=== PATIENT | male | born 1960 | race Caucasian/White ===

== ENCOUNTER 2019-08-05 05:44 | Day surgery (SDC) | payer BC ==
[~2019-08-05 05:44] MED LIST: AMIODARONE200 MG PO; CARVEDILOL12.5 MG PO; ESTER C PO; LISINOPRIL5 MG PO; PROTONIX40 M2 PO; SPIRONOLACT25 MG PO; XARELTO10 MG PO
[2019-08-05] MEDS ORDERED: PERCOCET 5/325M1 TAB PO (08:36)
[2019-08-05 09:53] VITALS: BP 124/86
[2019-11-10] MEDS ORDERED: BACTRIM DS1 TAB PO (09:38)
== END 2019-08-05 10:15 | disposition home or self-care (01) | DRG 419 ==
LOC: ORM 05:44
PROVIDERS: ATTEND Surgery
PROC: 0FT44ZZ Resection of Gallbladder, Percutaneous Endoscopic Approach (ICD-10-PCS; principal; 2019-08-05)
DX: K80.12 Calculus of gallbladder with acute and chronic cholecystitis without obstruction (principal); I10 Essential (primary) hypertension; I48.91 Unspecified atrial fibrillation; Z11.59 Encounter for screening for other viral diseases
CPT/HCPCS: J0131; J2710

== ENCOUNTER 2019-09-15 09:52 | Day surgery (SDC) | payer BC ==
[~2019-09-15 09:52] MED LIST changes: +PERCOCET 5/325M1 TAB PO
[2019-09-15 12:43] VITALS: BP 111/59
[2019-11-10] MEDS ORDERED: BACTRIM DS1 TAB PO (09:38)
== END 2019-09-15 13:40 | disposition home or self-care (01) | DRG 951 ==
LOC: ENDO 09:52 → ORM 12:35 → ENDO 13:40
PROVIDERS: ATTEND Surgery
PROC: 0DJ08ZZ Inspection of Upper Intestinal Tract, Via Natural or Artificial Opening Endoscopic (ICD-10-PCS; principal; 2019-09-15)
DX: Z46.89 Encounter for fitting and adjustment of other specified devices (principal); K44.9 Diaphragmatic hernia without obstruction or gangrene; I25.10 Atherosclerotic heart disease of native coronary artery without angina pectoris; I48.91 Unspecified atrial fibrillation; Z11.59 Encounter for screening for other viral diseases

== ENCOUNTER 2020-06-25 | Emergency (ER) | payer BC ==
[~2020-06-25] MED LIST changes: +BACTRIM DS1 TAB PO
[2020-06-25] MEDS ORDERED: DIGOXIN250 MCG PO (05:50)
[2020-06-25 06:06] LABS: HEMATOCRIT 38.4 % (39.0-50.0); HEMOGLOBIN 12.8 g/dl (14.0-18.0); IMMATURE GRANULOCYTES 0.2 % (0.0-5.0); MEAN CELL VOLUME 95.3 fL CALC (80.0-100.0); MEAN CORPUSCULAR HGB 31.8 pG CALC (26.0-32.0); MEAN CORPUSCULAR HGB CONC 33.3 g/dL CAL (32.0-36.0); NEUT# 6.41 thou/uL (1.82-7.42); RED BLOOD COUNT 4.03 mill/uL (4.70-6.10)
[2020-06-25 06:27] LABS: ALKALINE PHOSPHATASE 77 u/l (38-126); ANION GAP 11 (6-22 (CALC)); BILIRUBIN, TOTAL 1.8 mg/dL (0.0-1.4); BUN 23 mg/dL (9-20); BUN/CREATININE RATIO 19 (12-20 (CALC)); CARBON DIOXIDE 22 mmol/l (22-30); CHLORIDE 108 mmol/l (95-108); CREATININE 1.2 mg/dL (0.7-1.3); ETHYL ALCOHOL 0 mg/dl (0-30); GFR > 60 ML/MIN (>=60 (CALC)); GFR FOR AFR.AMER. > 60 ML/MIN (>=60 (CALC)); POTASSIUM 4.3 mmol/l (3.5-5.1); SGOT/AST 35 u/l (17-59); SODIUM 138 mmol/l (137-146); TOTAL PROTEIN 6.8 g/dL (6.3-8.2)
[2020-06-25 08:14] LABS: URINE BILIRUBIN - DIPSTICK NEGATIVE (NEGATIVE); URINE BLOOD DIPSTICK NEGATIVE (NEGATIVE); URINE COLOR YELLOW; URINE GLUCOSE - DIPSTICK NEGATIVE (NEGATIVE); URINE KETONE TRACE mg/dL (NEGATIVE); URINE LEUK ESTERASE NEGATIVE (NEGATIVE); URINE NITRITE - DIPSTICK NEGATIVE (Negative); URINE PH 5.5 (4.5-8.0); URINE PROTEIN - DIPSTICK NEGATIVE (NEG-TRACE); URINE SPECIFIC GRAVITY >=1.030; URINE UROBILINOGEN - DIPSTICK 0.2 E.U./dL (0.2)
[2020-06-25] MEDS ORDERED: VOLTAREN1%GEL TOP (08:20)
== END 2020-06-25 08:25 | disposition home or self-care (01) | DRG 556 ==
PROVIDERS: Emergency Medicine
DX: M25.562 Pain in left knee (principal); R79.89 Other specified abnormal findings of blood chemistry; I10 Essential (primary) hypertension; I48.91 Unspecified atrial fibrillation; W11.XXXA Fall on and from ladder, initial encounter; Y93.89 Activity, other specified; Y92.009 Unspecified place in unspecified non-institutional (private) residence as the place of occurrence of the external cause
CPT/HCPCS: L1830